=== PATIENT | female | born 1950 | race Caucasian/White ===

== ENCOUNTER → 2016-11-20 | Outpatient (CLI) | payer OTHER | LOC: FIMAGING 12:20 | DX: N63 Unspecified lump in breast (principal) | CPT/HCPCS: G0206 ==

== ENCOUNTER → 2017-01-08 | Outpatient (CLI) | payer OTHER | LOC: FIMAGING 15:56 | DX: M79.604 Pain in right leg (principal); Z85.3 Personal history of malignant neoplasm of breast ==

== ENCOUNTER → 2017-03-29 | Outpatient (CLI) | payer OTHER | LOC: FIMAGING 07:49 | DX: Z12.31 Encounter for screening mammogram for malignant neoplasm of breast (principal); Z85.3 Personal history of malignant neoplasm of breast; Z90.11 Acquired absence of right breast and nipple | CPT/HCPCS: G0202-52 ==

== ENCOUNTER 2017-08-26 08:11 | Emergency (ER) | payer OTHER ==
[2017-08-26 08:18] VITALS: RESP 18
--- NOTE | 2017-08-26 09:32 | EDPHY ---
General Narrative: CHIEF COMPLAINT: Right arm infection HISTORY OF PRESENT ILLNESS: Patient presents with complaints of infection of the right forearm. This was 1st noticed this morning. It is warm and painful. Does not itch. She feels somewhat febrile subjectively. She has no chills yet. She has no numbness or tingling. No trauma or injury. She does have a history of lymphedema due to breast cancer with lymph node dissection. She has had infection of the right arm several times in the past similar to this. She has never been hospitalized for this. She has been seen by the [facility] for this and treated outpatient. She has no other associated complaints or modifying factors for this. REVIEW OF SYSTEMS: Ten systems reviewed and are negative unless otherwise noted in the HPI PCP: [facility] SPECIALISTS: Dr. Rm Lala with Infectious Disease PAST MEDICAL HISTORY: Breast cancer status post dissection and flap, GERD, hiatal hernia PAST SURGICAL HISTORY: Lymph node dissection, , hysterectomy, flap SOCIAL HISTORY: Nonsmoker. No alcohol or drug use. 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 Symmetric radial pulses 2+. Neurological: GCS 15. A&O, nonfocal, normal gait. Interossei strength is symmetric Skin: Warm and dry. There is erythema and warmth to the right forearm consistent with cellulitis. No crepitus. No fluctuance. Nonpitting edema to the right upper extremity throughout. Extremities: Right upper extremity edema greater than the left. Nonpitting. There is mild tenderness in this area. Range of motion of the upper extremities symmetric Psychiatric: Mood and affect normal DIFFERENTIAL DIAGNOSES: Including but not limited to cellulitis, DVT, osteomyelitis, abscess, rash MDM: 9:04 a.m. Likely cellulitis of the right forearm. Vital signs are within normal limits. She does not meet SIRS criteria, nor does she appear toxic. Given her history I did order blood cultures and labs. I also ordered a duplex of the right upper extremity to rule out or in DVT. I discussed the case with Dr. Dos Santos. He will evaluate the patient. She is in no acute distress and resting comfortably. 10:15 a.m. Notified by radiologist Dr. Lane. Ultrasound of the right upper extremity is negative for DVT. 9:20 a.m. Patient has been evaluated by Dr. Dos Santos. 10:50 a.m. Case discussed with infectious disease physician Dr. Lala. He did not have any direct recall the patient being a difficult therapy. He recommends that we proceed with standard soft tissue treatment. She may follow up in his clinic as needed. 10:59 a.m. Patient re-evaluated. I discussed the negative ultrasound, laboratory studies and my conversation with Infectious Disease. We discussed discharge home with Augmentin therapy, outpatient follow up with primary care physician and/or Infectious Disease. We discussed ED precautions. The patient is comfortable this plan and discharged home stable condition. SUPERVISION: Patient was evaluated and examined in conjunction with my secondary supervising physician as documented. We have both examined the patient. - Diagnostics Imaging Results: Imaging Impressions Extremity Venous Study 08/26/17 09:04 Impression: There is no sonographic evidence of venous thrombosis in the right arm. Findings were discussed with Chuck Brady PA-C at 10:15, on 08/26/2017. - History Smoking Status: Never smoked - Objective Vital Signs: Initial Vital Signs Temperature (C) 98.4 F 08/26/17 08:12 Heart Rate 98 08/26/17 08:12 Respiratory Rate 18 08/26/17 08:12 Blood Pressure 180/100 H 08/26/17 08:12 O2 Sat (%) 99 08/26/17 08:12 O2 Delivery Mode Room Air Allergies/Adverse Reactions: latex Allergy (Unverified 12/02/16 10:41) Sulfa (Sulfonamide Antibiotics) Allergy (Unverified 12/02/16 10:41) Home Medications: Medication Instructions Recorded Amoxicillin/Clavulanate Pot 875 mg PO BID #20 tab 08/26/17 [Augmentin 875 MG TAB (*)] Prilosec 08/26/17 oxyCODONE HCL/ACETAMINOPHEN 1 each PO Q4-6PRN PRN #7 tablet 08/26/17 [Percocet 5-325 mg Tablet] Laboratory Results: Laboratory Results 08/26/17 09:40 08/26/17 09:40 08/26/17 08/26/17 08/26/17 09:40 09:40 09:40 WBC 12.38 10^3/uL H 10^3/uL (3.80-9.50) RBC 5.04 10^6/uL 10^6/uL (4.18-5.33) Hgb 15.7 g/dL g/dL (12.6-16.3) Hct 45.8 % % (38.0-47.0) MCV 90.9 fL fL (81.5-99.8) MCH 31.2 pg pg (27.9-34.1) MCHC 34.3 g/dL g/dL (32.4-36.7) RDW 13.5 % % (11.5-15.2) Plt Count 218 10^3/uL 10^3/uL (150-400) MPV 10.4 fL fL (8.7-11.7) Neut % (Auto) 79.8 % H % (39.3-74.2) Lymph % (Auto) 13.2 % L % (15.0-45.0) [place] % (Auto) 5.1 % % (4.5-13.0) Eos % (Auto) 1.1 % % (0.6-7.6) Baso % (Auto) 0.6 % % (0.3-1.7) Nucleat RBC Rel Count 0.0 % % (0.0-0.2) Absolute Neuts (auto) 9.88 10^3/uL H 10^3/uL (1.70-6.50) Absolute Lymphs (auto) 1.63 10^3/uL 10^3/uL (1.00-3.00) Absolute Monos (auto) 0.63 10^3/uL 10^3/uL (0.30-0.80) Absolute Eos (auto) 0.14 10^3/uL 10^3/uL (0.03-0.40) Absolute Basos (auto) 0.07 10^3/uL 10^3/uL (0.02-0.10) Absolute Nucleated RBC 0.00 10^3/uL 10^3/uL (0-0.01) Immature Gran % 0.2 % % (0.0-1.1) Immature Gran # 0.03 10^3/uL 10^3/uL (0.00-0.10) ESR 8 MM/HR MM/HR (0-30) PT 13.0 SEC SEC (12.0-15.0) INR 0.96 (0.83-1.16) APTT 25.5 SEC SEC (23.0-38.0) Sodium 147 mEq/L H mEq/L (134-144) Potassium 3.9 mEq/L mEq/L (3.5-5.2) Chloride 107 mEq/L mEq/L (97-110) Carbon Dioxide 25 mEq/l mEq/l (22-31) Anion Gap 15 mEq/L mEq/L (8-16) BUN 12 mg/dL mg/dL (7-23) Creatinine 0.7 mg/dL mg/dL (0.6-1.0) Estimated GFR > 60 Glucose 91 mg/dL mg/dL (70-100) Calcium 10.0 mg/dL mg/dL (8.5-10.4) C-Reactive Protein 15.8 mg/L H mg/L (<10.0) Departure - Departure Disposition: Home, Routine, Self-Care Clinical Impression: Cellulitis of right upper extremity, Chronic acquired lymphedema Condition: Good Instructions: Cellulitis (ED) Additional Instructions: 1. Antibiotic Medication as prescribed to completion 2. Pain medication as prescribed as needed 3. Follow up with infectious disease or your primary care physician as discussed 4. ED precautions as discussed Referrals: NONE *PRIMARY CARE P,. [Primary Care Provider] - As per Instructions Rm Lala MD [Medical Doctor] - As per Instructions Stand Alone Forms: Work Excuse Prescriptions: Amoxicillin/Clavulanate Pot [Augmentin 875 MG TAB (*)] 875 mg PO BID #20 tab oxyCODONE HCL/ACETAMINOPHEN [Percocet 5-325 mg Tablet] 1 each PO Q4-6PRN PRN #7 tablet PRN Reason: Pain, Breakthrough
[2017-08-26 09:59] LABS: PLATELET COUNT 218 10^3/uL (150-400)
[2017-08-26 10:11] LABS: INR 0.96 (0.83-1.16)
[2017-08-26 11:13] VITALS: BP 152/88; PULSE 94; TEMP 98.2; O2SAT 95
== END 2017-08-26 11:15 | disposition home or self-care (01) ==
DX: L03.113 Cellulitis of right upper limb (principal); I89.0 Lymphedema, not elsewhere classified; Z85.3 Personal history of malignant neoplasm of breast; Z91.040 Latex allergy status

== ENCOUNTER → 2017-12-28 | Outpatient (CLI) | payer OTHER | LOC: FIMAGING 16:25 | DX: Z12.31 Encounter for screening mammogram for malignant neoplasm of breast (principal); Z85.3 Personal history of malignant neoplasm of breast; Z90.11 Acquired absence of right breast and nipple ==

== ENCOUNTER 2018-02-15 16:56 | Inpatient (IN) | payer OTHER ==
[2018-02-15] MEDS ORDERED: NS 1,000 ML IV ONE ×2 (18:30→19:22)
--- NOTE | 2018-02-15 18:33 | EDPHY ---
H & P Stated Complaint: EDEMA AND REDNESS R ARM/HX BREAST CANCER Time Seen by Provider: 02/15/18 17:32 HPI/ROS: CHIEF COMPLAINT: Right arm infection HISTORY OF PRESENT ILLNESS: 67-year-old female with right upper extremity lymphedema and recurrent cellulitis presents with redness and pain of the right arm. Onset of moderate pain over the right wrist at 1630 this afternoon, gradually increasing. Associated with chills. Pain and redness extends from upper arm to wrist. No known fever. Similar to prior episodes of cellulitis. REVIEW OF SYSTEMS: complete 10 point ROS negative except at noted in the HPI - Personal History Current Tetanus Diphtheria and Acellular Pertussis (TDAP): Yes - Medical/Surgical History Hx Asthma: No Hx Chronic Respiratory Disease: No Hx Diabetes: No Hx Cardiac Disease: No Hx Renal Disease: No Hx Cirrhosis: No Hx Alcoholism: No Hx HIV/AIDS: No Hx Splenectomy or Spleen Trauma: No Other PMH: Breast cancer, lymph node removal, lumpectomy - 1998. Gerd. - Social History Smoking Status: Never smoked - Physical Exam Exam: General Appearance: Alert, pleasant, nontoxic-appearing Eyes: Pupils equal and round, no conjunctival pallor or injection ENT, Mouth: Mucous membranes moist Neck: Normal inspection Respiratory: Lungs are clear to auscultation Cardiovascular: Regular rate and rhythm Gastrointestinal: Abdomen is soft and nontender Neurological: A&O, nonfocal, normal gait Skin: Warm and dry Extremities: Right upper extremity-erythema, warmth and tenderness from the mid upper arm to the wrist; joint range of motion without pain Psychiatric: Mood and affect normal Constitutional: Initial Vital Signs Temperature (C) 36.8 C 02/15/18 17:00 Heart Rate 90 02/15/18 17:00 Respiratory Rate 16 02/15/18 17:00 Blood Pressure 148/90 H 02/15/18 17:00 O2 Sat (%) 94 02/15/18 17:00 O2 Delivery Mode Room Air Allergies/Adverse Reactions: latex Allergy (Verified 02/15/18 16:59) Sulfa (Sulfonamide Antibiotics) Allergy (Verified 02/15/18 16:59) Home Medications: Medication Instructions Recorded Herbals/Supplements -Info Only 1 ea PO DAILY 02/15/18 Omeprazole 20 mg PO DAILY 02/15/18 Simvastatin [Zocor] 20 mg PO HS 02/15/18 Medical Decision Making ED Course/Re-evaluation: This patient presents with recurrent cellulitis of the right upper extremity. She does not meet SIRS criteria. I do not suspect DVT in this patient. Blood cultures were drawn and Ancef 1 g IV given. Ibuprofen 600 mg orally given for pain. The hospitalist service was consulted for admission. Differential Diagnosis: Differential diagnosis includes though it is not limited to DVT, osteomyelitis, abscess, neurovascular compromise. - Data Points Laboratory Results: Laboratory Results 02/15/18 18:15 02/15/18 18:15 02/15/18 02/15/18 18:15 18:15 WBC 16.10 10^3/uL H 10^3/uL (3.80-9.50) RBC 4.56 10^6/uL 10^6/uL (4.18-5.33) Hgb 14.0 g/dL g/dL (12.6-16.3) Hct 41.9 % % (38.0-47.0) MCV 91.9 fL fL (81.5-99.8) MCH 30.7 pg pg (27.9-34.1) MCHC 33.4 g/dL g/dL (32.4-36.7) RDW 13.7 % % (11.5-15.2) Plt Count 192 10^3/uL 10^3/uL (150-400) MPV 10.6 fL fL (8.7-11.7) Neut % (Auto) 86.1 % H % (39.3-74.2) Lymph % (Auto) 9.1 % L % (15.0-45.0) [place] % (Auto) 3.5 % L % (4.5-13.0) Eos % (Auto) 0.7 % % (0.6-7.6) Baso % (Auto) 0.2 % L % (0.3-1.7) Nucleat RBC Rel Count 0.0 % % (0.0-0.2) Absolute Neuts (auto) 13.85 10^3/uL H 10^3/uL (1.70-6.50) Absolute Lymphs (auto) 1.47 10^3/uL 10^3/uL (1.00-3.00) Absolute Monos (auto) 0.57 10^3/uL 10^3/uL (0.30-0.80) Absolute Eos (auto) 0.12 10^3/uL 10^3/uL (0.03-0.40) Absolute Basos (auto) 0.03 10^3/uL 10^3/uL (0.02-0.10) Absolute Nucleated RBC 0.00 10^3/uL 10^3/uL (0-0.01) Immature Gran % 0.4 % % (0.0-1.1) Immature Gran # 0.06 10^3/uL 10^3/uL (0.00-0.10) Sodium 138 mEq/L mEq/L (135-145) Potassium 3.6 mEq/L mEq/L (3.3-5.0) Chloride 100 mEq/L mEq/L (97-110) Carbon Dioxide 27 mEq/l mEq/l (22-31) Anion Gap 11 mEq/L mEq/L (8-16) BUN 19 mg/dL mg/dL (7-23) Creatinine 0.8 mg/dL mg/dL (0.6-1.0) Estimated GFR > 60 Glucose 111 mg/dL H mg/dL (70-100) Calcium 9.4 mg/dL mg/dL (8.5-10.4) Total Bilirubin 0.6 mg/dL mg/dL (0.1-1.4) Medications Given: Ibuprofen (Motrin) 600 mg PO ONCE ONE Stop: 02/15/18 19:32 Last Admin: 02/15/18 19:41 Dose: 600 mg Discontinued Medications Cefazolin Sodium/Dextrose (Ancef 1 Gm (Premix)) 50 mls @ 200 mls/hr IV EDNOW ONE PRN Reason: Protocol Stop: 02/15/18 18:44 Last Admin: 02/15/18 18:55 Dose: 50 mls Sodium Chloride (Ns) 1,000 mls @ 0 mls/hr IV ONCE ONE; Wide Open PRN Reason: Protocol Stop: 02/15/18 18:31 Last Admin: 02/15/18 18:39 Dose: 1,000 mls Cefazolin Sodium/Dextrose (Ancef 1 Gm (Premix)) 50 mls @ 200 mls/hr IV EDNOW ONE PRN Reason: Protocol Stop: 02/15/18 19:29 Last Admin: 02/15/18 19:20 Dose: 50 mls Naproxen (Aleve) 220 mg PO EDNOW ONE Stop: 02/15/18 19:03 Last Admin: 02/15/18 19:30 Dose: Not Given Departure - Departure Disposition: [facility] Inpatient Acute Clinical Impression: Cellulitis Qualifiers: Site of cellulitis: extremity Site of cellulitis of extremity: upper extremity Laterality: right Qualified Code(s): L03.113 - Cellulitis of right upper limb Condition: Fair
[2018-02-15] MEDS ORDERED: ONDANSETRON 4 MG/2 ML VIAL IVP PRN (19:00)
[2018-02-15] MEDS ORDERED: ONDANSETRON DISINTEGRATING 4 MG TAB PO PRN (19:00)
[2018-02-15] MEDS ORDERED: ACETAMINOPHEN 325 MG TAB PO PRN (19:00)
[2018-02-15] MEDS ORDERED: oxyCODONE IR 5 MG TAB PO PRN (19:00)
[2018-02-15] MEDS ORDERED: NAPROXEN SODIUM 220 MG TAB PO ONE (19:02)
[2018-02-15] MEDS ORDERED: 1/2 NS 1,000 ML IV SCH (19:15)
[2018-02-15] MEDS ORDERED: IBUPROFEN 600 MG TAB PO ONE ×2 (19:31→19:39)
[2018-02-15 19:34] LABS: PLATELET COUNT 192 10^3/uL (150-400)
--- NOTE | 2018-02-15 19:34 | PDGENHP ---
History and Physical - Chief Complaint right arm redness and pain - History of Present Illness 67 yo female with h/o breast cancer diagnosed in 1998, s/p lumpectomy and lymph node dissection with subsequent lymphedema presents to the ED with RUE redness and swelling. She has h/o RUE cellulitis secondary to her lymphedema, most recently treated with Augmentin in 07/2017. She noticed her arm became red, painful and warm this afternoon at 4 pm. She reports feeling cold and is intermittently shivering in the ED. No fevers. No CP or SOB. No h/o DVT. In the ED, her vitals signs are stable. Blood cultures are drawn, she received 2g IV Ancef and she is admitted for further management. History Information - Allergies/Home Medication List Allergies/Adverse Reactions: latex Allergy (Verified 02/15/18 16:59) Sulfa (Sulfonamide Antibiotics) Allergy (Verified 02/15/18 16:59) Home Medications: Herbals/Supplements -Info Only 1 ea PO DAILY 02/15/18 [Last Taken 02/15/18] Omeprazole 20 mg PO DAILY 02/15/18 [Last Taken 02/15/18] Simvastatin [Zocor] 20 mg PO HS 02/15/18 [Last Taken 02/13/18] I have personally reviewed and updated: family history, medical history, social history, surgical history - Past Medical History hypertension Additional medical history: h/o breast cancer dx'd 1998. Hiatal hernia. GERD. hypertension - Surgical History Reports: hysterectomy Additional surgical history: Lumpectomy and lymph node dissection in 1998 for breast cancer. 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 Review of Systems Review of Systems: ROS: 10pt was reviewed & negative except for what was stated in HPI & below Physical Exam Physical Exam: Temp Pulse Resp BP Pulse Ox 37.4 C 90 16 115/62 96 02/15/18 19:22 02/15/18 19:22 02/15/18 19:22 02/15/18 18:38 02/15/18 19:22 Constitutional: no apparent distress Eyes: PERRL Ears, Nose, Mouth, Throat: moist mucous membranes Cardiovascular: regular rate and rhythym Respiratory: no respiratory distress, clear to auscultation Gastrointestinal: normoactive bowel sounds, soft, non-tender abdomen Skin: warm, other (RUE with erythema from wrist extending to mid humeral region , warm to touch with edema) Musculoskeletal: full muscle strength Neurologic: AAOx3 Psychiatric: interacting appropriately Lab Data & Imaging Review 02/15/18 18:15 02/15/18 18:15 VBG Lactic Acid 1.3 mmol/L (0.7-2.1) 02/15/18 19:15 Assessment & Plan Assessment: Cellulitis (Acute) RUE - with h/o chronic lymphedema and recurrent cellulitis. WBC's 16K. Lactate nl. No e/o SIRS or sepsis on arrival and she is afebrile. -BCx's pending -Ancef 2g IV q8h -follow wbc's -prudent to r/o DVT given h/o cancer and lymphedema, RUE u/s ordered H/O breast cancer s/p lumpectomy and lymph node dissection with chronic lymphedema Hypertension - normotensive on arrival, cont home meds GERD - cont PPI Full code DVT PPLX - Lovenox Dispo - admit to inpt, anticipate >48 hrs hospitalization for ongoing management of RUE cellulitis
[2018-02-15] MEDS ORDERED: KETOROLAC 15 MG/1 ML SDV IVP PRN (20:53)
[2018-02-15] MEDS: ATORVASTATIN CALCIUM 10 MG TAB PO SCH (21:43)
[2018-02-16] MEDS: ceFAZolin 2 GM/DEXTROSE 100 ML IV SCH ×3 (01:57→18:42)
[2018-02-16 05:26] LABS: PLATELET COUNT 189 10^3/uL (150-400)
[2018-02-16] MEDS: PANTOPRAZOLE SODIUM 40 MG TAB PO SCH (08:10)
[2018-02-16] MEDS: ENOXAPARIN 40 MG/0.4 ML SYR SC SCH (08:10)
--- NOTE | 2018-02-16 11:22 | PDMN ---
Medical Necessity Medical necessity: MCG: M70 Cellulitis, A-2 days, RUE cellulitis w/ lymphedema. Has h/o chronic lymphedema and recurrent cellulitis. Chills, elevated increasing WBC 20.23, BCx pending, IV antibx required, Hx breast cancer w/ chronic lymphedema, anticipate >2MN for ongoing management of RUE cellulitis.
--- NOTE | 2018-02-16 12:14 | ASMTCMCOM ---
CM Note CM Note Notes: CM reviewed Pt's chart for D/C planning. Pt is a 67 year old female who presented to the ED due to her arm being red and swollen. Pt has a h/o breast cancer with chronic lymphedema and recurrent cellulitis. Prior to admission Pt lived independently and it is anticipated that she will not have CM needs and will return to being independent. CM will follow. D/C Plan: Independent Date Signed: 02/16/2018 12:13 PM Electronically Signed By:Camille Joshi
--- NOTE | 2018-02-16 13:20 | HOSPPROG ---
Hospitalist Progress Note Assessment/Plan: * Cellulitis right arm - complicated by chronic lymphedema -IV Ancef -slow improvement * Breast cancer s/p lumpectomy/LN dissection * HTN * Gerd -PPI Subjective: slow improvement Objective: Vital Signs Temp Pulse Resp BP Pulse Ox 37.0 C 86 14 122/63 H 95 02/16/18 11:35 02/16/18 11:35 02/16/18 11:35 02/16/18 11:35 02/16/18 11:35 Laboratory Results 02/16/18 04:42 02/16/18 04:42 02/15/18 02/16/18 02/17/18 05:59 05:59 05:59 Intake Total 2200 Output Total 650 Balance 1550 - Physical Exam Constitutional: no apparent distress, appears nourished, not in pain Cardiovascular: regular rate and rhythym, no murmur, rub, or gallop Respiratory: no respiratory distress, no rales or rhonchi, clear to auscultation Gastrointestinal: normoactive bowel sounds, soft, non-tender abdomen, no palpable masses Skin: warm, erythema, No normal color, No induration, No fluctuance Neurologic: AAOx3, sensation intact bilaterally Psychiatric: interacting appropriately, not anxious, not encephalopathic, thought process linear ICD10 Worksheet Patient Problems: Problems Problem Status Onset Cellulitis Acute
[2018-02-16] MEDS: ATORVASTATIN CALCIUM 10 MG TAB PO SCH (20:35)
[2018-02-17] MEDS: ceFAZolin 2 GM/DEXTROSE 100 ML IV SCH ×2 (02:36→09:20)
[2018-02-17 05:31] LABS: PLATELET COUNT 165 10^3/uL (150-400)
[2018-02-17] MEDS: ENOXAPARIN 40 MG/0.4 ML SYR SC SCH (09:20)
[2018-02-17] MEDS: PANTOPRAZOLE SODIUM 40 MG TAB PO SCH (09:20)
--- NOTE | 2018-02-17 11:09 | GCON ---
[f rep st] CONSULTATION INFECTIOUS DISEASE CONSULT DATE OF CONSULTATION: 02/17/2018 REFERRING PHYSICIAN: Alexsandra Zapata MD REASON FOR CONSULT: To assist in the management of this 67-year-old female with history of lymphedema of right upper extremity, now admitted with right upper extremity cellulitis. HISTORY OF PRESENT ILLNESS: The patient is a very pleasant 67-year-old female whose previous medical history is notable for the followin. Breast cancer diagnosed 1998, status post lumpectomy and lymph node dissection with consequential lymphedema of the right upper extremity. 2. History of right upper extremity cellulitis, most recent episode in July. She states that she only gets perhaps 1 episode per year or less. At that time, she was treated with Augmentin. She states she did not tolerate the Augmentin well secondary to significant abdominal discomfort and diarrhea. Regarding her present issues, the patient states that she is left handed and reports that she was painting over this past weekend. She states that some paint got on right hand (she always wears her lymphedema sleeve, but did not cover her hand). She feels that she was too abrasive when she washed it off and is concerned that this is the reason for her cellulitis. She denies any obvious breaks in the skin. She states that this came on fairly suddenly on Wednesday when she felt that her arm was itchy and heavy. She presented to [facility] Emergency Department on February 15 and states that she sat in our emergency room for several hours before she was attended to. In the emergency room, she was given a gram of Ancef and admitted for further evaluation and treatment. The patient did not meet SIRS criteria. She was continued on Ancef, but 2 g IV q.8 hours. The patient would like to be discharged, and now I am asked to assist in her management prior to discharge. The patient feels that she is much better. She is quite anxious to go home. She did have some chills prior to admission, but she states that those have resolved. Her arm is not particularly painful. REVIEW OF SYSTEMS: Notable for some heaviness in the right arm, which she says is better; otherwise 10 systems are reviewed and all are negative. PREVIOUS MEDICAL HISTORY: As outlined above. Hyperlipidemia. MEDICATIONS: Ancef 2 g IV q.8 hours, day #2; Toradol; Lovenox; Lipitor; Protonix. ALLERGIES: Latex and sulfa. 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 No history of MRSA. No tobacco. She does have a On[place]re, but denies any recent bites, licks or scratches to the arm. No water exposure other than her shower. No recent travel within or outside the [place]. She has not been gardening or had any other unusual exposures. REVIEW OF SYSTEMS: As outlined above. PHYSICAL EXAM: VITAL SIGNS: T current 37.3, T-max 37.4, heart rate 103, blood pressure 139/64. GENERAL: Well-nourished, well-developed female lying in bed, nontoxic, no apparent distress. HEENT: Atraumatic, normocephalic. Pupils equal, round, reactive to light. Extraocular movements are intact. No conjunctival injection or icterus or petechiae. Mucous membranes moist. No oral lesions noted. Dentition in fair repair. No sinus process tenderness or discharge from the nares. NECK: Supple. No thyromegaly or palpable thyroid nodules. CARDIOVASCULAR: S1, S2. No rubs, gallops, or murmurs. LUNGS: Clear to auscultation bilaterally with no rales, rhonchi, or wheeze. No increased respiratory effort. ABDOMEN: Soft. No tenderness to palpation. EXTREMITIES: Her right upper extremity is notable for lymphedema. It is swollen compared to the left. The forearm has mild blanching erythema that the patient states is better. It is warm to the touch, but not painful. There are no bullae or vesicles noted. The dorsum of the hand is slightly puffy. There are no obvious breaks in the skin. The left arm is unremarkable as are her feet save for some onychomycosis. NEUROLOGIC: She is alert and oriented x3. LABORATORY DATA: Blood cultures x2 on the are no growth. White blood cell count of 11.7, down from 20. BUN and creatinine 19/0.8. IMPRESSION: 67-year-old female with history of breast cancer with lymphedema of the right upper extremity, who now presents with right upper extremity cellulitis. She is improving on Ancef and is anxious to go home. Suspect common pathogens are culpable, such as staphylococci and streptococci. The patient states she did not tolerate Augmentin secondary to gastrointestinal distress and has not tolerated Keflex due to same. Would therefore use dicloxacillin moving forward for another 9 days as per plan outlined below. The patient does not feel that she needs to follow up with any of her doctors and tells me "I don't need to follow up." PLAN: 1. She will receive 1 more dose of Ancef this morning prior to discharge. 2. Start dicloxacillin 500 mg p.o. q.6 hours for another 9 days. 3. The patient understands she needs to continue to keep her right arm elevated. 4. Long conversation with the patient today about the need to return should she have worsening erythema. She expressed understanding. I gave her my card. Thank you very much for consulting Infectious Diseases. /[id number]/MODL [id number]
[2018-02-17 12:35] VITALS: BP 138/69
--- NOTE | 2018-02-17 13:51 | ASDISCHSUM ---
Discharge Information Plan Status:Home with No Needs Medically Cleared to Leave: Discharge Date:02/17/2018 01:15 PM CM D/C Disposition:Home, Routine, Self-Care ADT D/C Disposition:Home, Routine, Self-Care Projected Discharge Date:02/17/2018 01:15 PM Transportation at D/C:Family Discharge Delay Reason: Follow-Up Date:02/17/2018 01:15 PM Discharge Slot: Final Diagnosis: Placement Information Patient Contact Information Contact Name:MICHELLE Relationship:Sister Address: Work Phone: City: [place] Phone: State/Zip Code: Email: Financial Information Financial Class:[employer] Primary Plan Desc:[facility] Primary Plan Number:[id number] Secondary Plan Desc:MEDICARE INPATIENT Secondary Plan Number:[id number] Assessment Information [facility] CM Progress Note CM Note CM Note Notes: CM reviewed Pt's chart for D/C planning. Pt is a 67 year old female who presented to the ED due to her arm being red and swollen. Pt has a h/o breast cancer with chronic lymphedema and recurrent cellulitis. Prior to admission Pt lived independently and it is anticipated that she will not have CM needs and will return to being independent. CM will follow. D/C Plan: Independent Date Signed: 02/16/2018 12:13 PM Electronically Signed By:Camille Joshi Case Management Discharge Plan Note Case Management Discharge Discharge Order Complete? Answers: Yes Patient to Obtain Answers: Independently Medications Discharge Comments Notes: Pt D/Lewis home independently. Date Signed: 02/17/2018 01:50 PM Electronically Signed By:Camille Joshi Intervention Information
--- NOTE | 2018-02-17 16:57 | GDS ---
[f rep st] DISCHARGE SUMMARY DISCHARGE DIAGNOSES: 1. Cellulitis of the right arm. 2. Chronic right upper extremity lymphedema, status post breast cancer treatment. 3. Breast cancer, status post lumpectomy and lymph node dissection. 4. Hypertension. 5. Gastroesophageal reflux disease. HOSPITAL COURSE: The patient is a 67-year-old female with chronic right upper extremity lymphedema. She has had cellulitis in this arm in the past. She presented with another episode of cellulitis. She was treated with IV Ancef and did have slow improvement. On the day of discharge, she was absolu tely insistent on being discharged. Dr. Winter saw her from Infectious Disease and did feel she was o [place] to switch to oral therapy. She has had previous adverse reactions to Augmentin and Keflex and so will be discharged on dicloxacillin to complete a full 10 day course of therapy. DISCHARGE MEDICATIONS: Please see computerized record for full detailed list. New medications: Dicloxacillin 500 mg p.o. 4 times a day for 9 more days. ADDITIONAL DISCHARGE INSTRUCTIONS: 1. Elevate right upper extremity as much as possible. 2. Follow up with Dr. Eula Winter as needed. Greater than 30 minutes' time was spent arranging this discharge. Patient seen and examined by me on day of discharge. /[id number]/MODL
== END 2018-02-17 13:15 | disposition home or self-care (01) | DRG 603 ==
LOC: F1N 21:17
PROVIDERS: ADMIT Hospitalist; ATTEND Internal Medicine
DX: L03.113 Cellulitis of right upper limb (principal); I89.0 Lymphedema, not elsewhere classified; Z85.3 Personal history of malignant neoplasm of breast; I10 Essential (primary) hypertension; K21.9 Gastro-esophageal reflux disease without esophagitis
CPT/HCPCS: 96374; J0690; J1650; J1885

== ENCOUNTER → 2018-09-23 | Outpatient (CLI) | payer OTHER | LOC: FIMAGING 15:41 | DX: M79.601 Pain in right arm (principal); Z90.11 Acquired absence of right breast and nipple ==

== ENCOUNTER → 2019-01-06 | Outpatient (CLI) | payer OTHER | LOC: FIMAGING 16:01 | DX: Z12.31 Encounter for screening mammogram for malignant neoplasm of breast (principal); Z85.3 Personal history of malignant neoplasm of breast; Z90.11 Acquired absence of right breast and nipple ==